=== PATIENT | male | born 1955 | race Caucasian/White ===

== ENCOUNTER 2018-06-11 07:25 | Emergency (ER) | payer OTHER, SELFPAY ==
[2018-06-11 07:37] VITALS: BP 131/74; PULSE 72; RESP 16; TEMP 36.4; O2SAT 99; BMI 29.4
--- NOTE | 2018-06-11 08:12 | ED_ITS ---
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 Notes normal sensation in his left 4th finger. ROS with no recent constitutional symptoms. Exam Gen: Pleasant, nontoxic-appearing, resting comfortably. HEENT: NC, AT, PEERL, EOMI. Resp: Unlabored respirations with a normal work of breathing. Card: Extremities warm and well perfused. GI: Non-distended. : Deferred MSK: left 4th finger with a 1.25 cm long full thickness transverse laceration immediately proximal to the joint, wound base is clean, no visualized foreign bodies, joint capsule intact, no visualized ligamentous or tendinous injury. Full functional range of motion on flexion, extension, abduction, adduction of the finger. Sensation intact to touch the tip of the finger. Patient with brisk capillary refill. Neuro: AO x 3, no facial asymmetry, vision and hearing WNL. Heme/Lymph: Deferred Skin: Normal color with no visible lesions (other than noted above). Psych: Mood and affect appropriate. MDM Previous chart, nursing note, and vitals reviewed. 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 TD up-to- date. CMS intact. Laceration repaired as documented below. Discussion was had with the patient regarding prophylaxis with antibiotics versus watchful waiting , the relative lack of evidence, and the possibility for medication side effect. Patient elected to pursue watchful waiting and has your daily port calls in the immediate future allowing for follow-up if needed. 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 Impression: laceration (please reference below for remainder of encounter information) Laceration Repair Verbal consent obtained. Wound cleaned with copious clean tap water (patient's hand was water several minutes under running water in a sink). Local infiltration of 1.5 mL of 1% lidocaine with epinephrine was used for anesthesia. No debriding of tissue required. No foreign bodies removed, entirety of wound well visualized with no remaining foreign bodies appreciated. Using a clean procedure the wound was repaired with 6 4-0nylon simple interrupted sutures. No undermining required, patient tolerated the procedure well without apparent complications. Related Data Home Medications Medication Instructions Recorded Confirmed allopurinol 300 mg 06/11/18 Allergies Allergy/AdvReac Type Severity Reaction Status Date / Time No Known Drug Allergies Allergy Verified 06/11/18 07:37 [facility] Social History Smoking Status: Never smoker Exam Initial Vital Signs Initial Vital Signs: Vital Signs Temperature 97.6 F 06/11/18 07:37 Pulse Rate 72 06/11/18 07:37 Respiratory Rate 16 06/11/18 07:37 Blood Pressure 131/74 H 06/11/18 07:37 Pulse Oximetry 99 06/11/18 07:37 Course Vital Signs - 8 hr 06/11/18 07:37 Temperature 97.6 F Pulse Rate 72 Respiratory Rate 16 Blood Pressure 131/74 H Pulse Oximetry 99 Discharge Plan Departure Prescriptions: No Action allopurinol 300 mg RF: 0
[2018-06-11 08:13] VITALS: BP 124/64; PULSE 74; RESP 16; TEMP 36.9; O2SAT 98
== END 2018-06-11 08:13 | disposition home or self-care (01) ==
PROVIDERS: Emergency Provider Emergency Medicine
DX: S61.215A Laceration without foreign body of left ring finger without damage to nail, initial encounter (principal); W26.0XXA Contact with knife, initial encounter
CPT/HCPCS: 12001; 99282; 99283